=== PATIENT | female | born 1985 | race Caucasian/White ===

== ENCOUNTER 2022-08-16 04:02 | Emergency (ER) | payer MEDICARE, MEDICAID, SELFPAY ==
[2022-08-16 04:10] VITALS: BMI 36.0
[2022-08-16] MEDS: clonazePAM 1 MG TABLET PO ×2 (04:35→12:53)
[2022-08-16 05:00] VITALS: BP 132/83; PULSE 84; RESP 18; TEMP 36.8; O2SAT 100
--- NOTE | 2022-08-16 05:02 | MHC.EDTECH ---
pt continues to refuse lab draw. Did give nasal swab.
[2022-08-16 05:16] LABS: COVID-19 Test Negative (Negative); IDNOW Serial# BCCEAD1C
--- NOTE | 2022-08-16 06:40 | ED.PSYCH ---
HPI - Psych General Chief Complaint: Psychiatric Symptoms Stated Complaint: si Time Seen by Provider: 08/16/22 04:30 Source: patient Mode of arrival: EMS Limitations: no limitations History of Present Illness HPI Narrative: Patient with history of paranoid disorder/bipolar Section [address] by PD as she was driving erratically on the street without headlight on, paranoid about people following her going to kill her not taking her medications for a while. Related Data Home Medications Medication Instructions Recorded Confirmed albuterol sulfate 90 mcg/actuation 2 puff inhalation Q4H 08/16/22 08/16/22 aerosol inhaler clonazepam 1 mg tablet 1 tab PO BID 08/16/22 08/16/22 clonidine HCl 0.2 mg tablet 2 tab PO BEDTIME insomnia 08/16/22 08/16/22 cyanocobalamin (vitamin B-12) 1 tab PO DAILY 08/16/22 08/16/22 1,000 mcg tablet dextroamphetamine-amphetamine 12.5 1 tab PO BID 08/16/22 08/16/22 mg tablet melatonin 10 mg capsule 1 cap PO BEDTIME insomnia 08/16/22 08/16/22 melatonin 10 mg tablet,extended 1 tab PO BEDTIME insomnia 08/16/22 08/16/22 release,multiphase metformin 500 mg tablet 1 tab PO BID 08/16/22 08/16/22 topiramate 200 mg tablet 1 tab PO BEDTIME hyperlipidemia 08/16/22 08/16/22 trazodone 50 mg tablet 1.5 tab PO BEDTIME PRN insomnia 08/16/22 08/16/22 ziprasidone HCl 40 mg capsule 1 cap PO BEDTIME 08/16/22 08/16/22 Allergies Allergy/AdvReac Type Severity Reaction Status Date / Time No Known Allergies Allergy Verified 08/16/22 04:17 Review of Systems Review of Systems: Yes all other systems are reviewed and are negative PMFSH Social History Social History Advance Directives: No Physical Exam Vital Signs: Vital Signs: Last Vital Signs Temp 98.2 F 08/16/22 05:00 Pulse 84 08/16/22 05:00 Resp 18 08/16/22 05:00 BP 132/83 08/16/22 05:00 Pulse Ox 100 08/16/22 05:00 O2 Del Method 08/16/22 05:00 BMI result Body Mass Index 36.0 Appearance: Alert. Oriented X3. No acute distress. Anxious Eyes: PERRLA, No Nystagmus ENT: Pharynx normal. Oral Mucosa moist Neck: Normal inspection. Neck supple. CVS: Normal heart rate and rhythm. Pulses normal. Respiratory: No respiratory distress. Equal air entry bilateral, no wheezing/rales/rhonchi Abdomen: Soft and nontender. Bowel sounds are present, no mass palpable, no CVA tenderness Skin: Skin warm and dry. Normal skin color. Normal skin turgor. Extremities: No lower extremity edema. No calf tenderness Neuro: Oriented X 3. No motor deficit. No sensory deficit.No cerebellar signs , cranial nerves II-XII intact psych: Anxious making SI statements with plan to overdose Medications Administered Discontinued Medications Generic Name Dose Route Start Last Admin Trade Name Freq PRN Reason Stop Dose Admin Clonazepam 1 mg 08/16/22 04:30 08/16/22 04:35 Clonazepam 1 Mg Tablet PO 08/16/22 04:31 1 mg ONCE ONE Administration Medical Decision Making Medical Decision Making [facility] Narrative: Patient with delusional with paranoid thoughts and SI will get care team consult for evaluation Lab Data Labs: Lab Results 08/16/22 Range/Units 04:58 COVID-19 ([facility]) Negative (Negative) COVID-19 Clin Com See Note Discharge Plan Discharge Clinical Impression: Bipolar disorder, Chronic schizophrenia, Suicidal ideation Patient Disposition: Still a Patient Prescriptions: No Action metformin 500 mg tablet 1 tab PO BID trazodone 50 mg tablet 1.5 tab PO BEDTIME PRN (Reason: insomnia) dextroamphetamine-amphetamine 12.5 mg tablet 1 tab PO BID clonazepam 1 mg tablet 1 tab PO BID cyanocobalamin (vitamin B-12) 1,000 mcg tablet 1 tab PO DAILY clonidine HCl 0.2 mg tablet 2 tab PO BEDTIME topiramate 200 mg tablet 1 tab PO BEDTIME ziprasidone HCl 40 mg capsule 1 cap PO BEDTIME albuterol sulfate 90 mcg/actuation HFA aerosol inhaler 2 puff INHALATION Q4H melatonin 10 mg tablet,ext release multiphase 1 tab PO BEDTIME melatonin 10 mg capsule 1 cap PO BEDTIME Interventions: Woodward-Suicide Risk Severity Scale Last Done: 08/16/22 04:33
--- NOTE | 2022-08-16 06:43 | PC.NURSE ---
Patient sleeping since 529, observed restlessness at the time of arrival, Klonopin 1 mg administered at 0435 with + effect, patient refused to provide urine sample and refused blood work but agreed for COVID swab, med rec completed/pending provider's approval, care consult ordered/pending care team evaluation, behavior non concerning but unpredictable, VSS, will continue to monitor.
--- NOTE | 2022-08-16 09:17 | MHC.EDTECH ---
pt woke up this morning, emotional and agitated stating that she wanted to see a doctor. when asked to confirm that she would like to speak with a physician the pt refused. pt also refusing blood work and to provide a urine sample at this time.
[2022-08-16 10:24] LABS: Appearance Urine Turbid; Color Urine Yellow; Glucose Urine UA Negative (Negative); Leukocyte Esterase Urine Small (1+) (Negative); Nitrite Urine Negative (Negative); PH 6.5 (5.0-9.0); Specific Gravity - Urine 1.015 (1.005-1.025); UMIC TRIGGER UA YES; Urine Blood Negative (Negative); Urine Ketones Negative (Negative); Urine Protein Negative (Neg-Trace)
[2022-08-16 10:28] LABS: UPreg QC Valid YES; Urine Pregnancy NEGATIVE (NEGATIVE)
[2022-08-16 10:40] LABS: Bacteria Urine None Seen (None Seen); Granular Casts Urine Present; Hyaline Casts Urine 0-2 /LPF (0-2); RBC Urine 0-2 /HPF (0-2); WBC Urine 0-5 /HPF (0-5)
[2022-08-16 10:41] LABS: Amphetamine Screen Urine POSITIVE (Not Detect); Barbiturates, Urine Not Detected (Not Detect); Benzodiazepines Screen Urine POSITIVE (Not Detect); Cannabinoid Screen Urine POSITIVE (Not Detect); Cocaine Screen Urine Not Detected (Not Detect); Fentanyl, urine Not Detected (Not Detect); Opiate Screen Urine POSITIVE (Not Detect); Phencyclidine Screen Urine Not Detected (Not Detect)
--- NOTE | 2022-08-16 11:49 | PHA.MEDREC ---
Pharmacy Consult ? Medication Reconciliation Pharmacy has completed the medication reconciliation. Pharmacy has reviewed med rec done by [facility].
[2022-08-16] MEDS: Albuterol Sulfate 90 MCG 8 GM INHALER 2 PUFF INHALE (12:52)
[2022-08-16] MEDS: metFORMIN HCl 500 MG TABLET PO ×2 (12:53→20:25)
[2022-08-16] MEDS: Cyanocobalamin (Vitamin B-12) 1,000 MCG TABLET 1000 MCG PO (12:53)
--- NOTE | 2022-08-16 13:06 | HE.PHANOTE ---
Pharmacy has received Melatonin XR and Adderal 12.5 mg tablet from patient. Adderal counted 48 tablets, witness by JOSEP Yee. Pharmacy will hold medication and send each dose to ER until patient is either discharged or admitted. Shayy Law, HollandD
[2022-08-16 13:48] VITALS: BP 136/85; PULSE 85; RESP 16; TEMP 36.8; O2SAT 100
[2022-08-16] MEDS: LORazepam 1 MG TABLET PO (17:25)
[2022-08-16] MEDS: Nystatin Ointment 15 GM TUBE 1 APPL TOPICAL (17:28)
[2022-08-16] MEDS: Topiramate 100 MG TABLET 200 MG PO (19:38)
[2022-08-16] MEDS: traZODone HCL 25 MG HALFTAB 75 MG PO (19:38)
[2022-08-16] MEDS: cloNIDine HCL 0.2 MG TABLET 0.4 MG PO (19:39)
[2022-08-16 19:43] VITALS: BP 125/85; PULSE 83; RESP 18; TEMP 36.5; O2SAT 99
[2022-08-16 20:07] LABS: Alanine Aminotransferase 15 U/L (0-31); Albumin Level 4.4 g/dL (3.5-5.0); Alkaline Phosphatase 65 U/L (39-117); Anion Gap 17 (12-20); Aspartate Amino Transferase 16 U/L (5-31); Bilirubin Total 0.4 mg/dL (0.0-1.0); Blood Urea Nitrogen 13 mg/dL (9-16); Calcium 9.9 mg/dL (8.4-10.2); Carbon Dioxide 22 mmol/L (22-29); Chloride 107 mmol/L (96-108); Creatinine Clr Calc Pharmacy 93.8; Estimated Glomerular Filt Rate > 60; Ethanol < 10 mg/dL; Glucose Random 82 mg/dL (60-115); Potassium 3.8 mmol/L (3.3-5.1); Sodium 142 mmol/L (135-145); Total Protein 7.2 g/dL (6.5-8.0)
[2022-08-16] MEDS: Ziprasidone 40 MG CAPSULE PO (20:20)
--- NOTE | 2022-08-17 05:49 | PC.NURSE ---
Patient slept through the night, no distress observed/reported, medication compliant, behavior non concerning but unpredictable, patient was assessed by care team, pending disposition/adán follow up, VSS, will continue to monitor.
[2022-08-17] MEDS: Cyanocobalamin (Vitamin B-12) 1,000 MCG TABLET 1000 MCG PO (08:18)
[2022-08-17] MEDS: metFORMIN HCl 500 MG TABLET PO ×2 (08:18→20:10)
[2022-08-17] MEDS: Nystatin Ointment 15 GM TUBE 1 APPL TOPICAL (08:23)
[2022-08-17] MEDS: clonazePAM 1 MG TABLET PO ×3 (08:24→20:10)
[2022-08-17 12:20] VITALS: BP 114/71; PULSE 81; RESP 16; TEMP 36.5; O2SAT 100
[2022-08-17] MEDS: Albuterol Sulfate 90 MCG 8 GM INHALER 2 PUFF INHALE (13:36)
[2022-08-17] MEDS: Fluticasone Propionate Nasal 16 GM SPRAY 2 SPRAY NOSTRIL-B (13:36)
--- NOTE | 2022-08-17 13:39 | PC.NURSE ---
PT SEEN BY CARE TEAM. PT IS DISGRUNTLED ABOUT ABILITY TO PERFORM SELF CARE, APPEARS AGITATED THOUGH EASILY REASSURED. REQUESTING KLONOPIN AT THIS TIME, STATES SHE TAKES THIS AT HOME TWICE A DAY ONCE IN THE MORNING AND ONCE IN THE AFTERNOON. IT IS CURRENTLY NOT SCHEDULED UNTIL THIS EVENING, SHE IS REFUSING PRN ATIVAN I DON'T LIKE THE WAY THAT STUFF MAKES ME FEEL . WILL DISCUSS SWITCHING TIMES WITH PROVIDER. CALL RECEIVED FROM PTS MOTHER GEOVANY [phone]
--- NOTE | 2022-08-17 15:23 | PC.NURSE ---
PT CONSTIPATED, STATES CHRONIC SINCE JUNE. HEARD YELLING FROM THE BATHROOM. DISCOURAGED FROM ATTEMPTING TOO HARD. SEA SHELL GATHERER CONTACTED FOR ORDERS, PT REFUSING BISACODYL AT THIS TIME. STATES SHE WAS ABLE TO PASS SMALL BM. WILL HOLD ORDER FOR NOW. SPEECH PRESSURED, SKEPTICAL OF CARE.
--- NOTE | 2022-08-17 16:16 | PC.NURSE ---
PT REFUSING EKG AT THIS TIME, DEMANDING TO SPEAK WITH CARE TEAM ABOUT PLAN FOR ADMISSION.
--- NOTE | 2022-08-17 19:41 | PC.NURSE ---
PT CONTINUES TO REFUSE EKG
[2022-08-17 19:44] VITALS: BP 134/82; PULSE 84; RESP 16; O2SAT 96
[2022-08-17] MEDS: Ziprasidone 40 MG CAPSULE PO (20:10)
[2022-08-17] MEDS: cloNIDine HCL 0.2 MG TABLET 0.4 MG PO (20:10)
[2022-08-17] MEDS: Topiramate 100 MG TABLET 200 MG PO (20:10)
[2022-08-17] MEDS: Docusate Sodium 100 MG CAPSULE PO (20:10)
[2022-08-17] MEDS: traZODone HCL 25 MG HALFTAB 75 MG PO (20:18)
--- NOTE | 2022-08-17 23:55 | PC.NURSE ---
This nurse assume care at 23:00: Pt was re-assess, pt denies being SI/HI. Pt is refusing completing the EKG. Will continue to monitor. Please referral to the worklist for further info.
[2022-08-18 00:37] VITALS: BP 123/69; PULSE 66; RESP 22; TEMP 36.2; O2SAT 98
[2022-08-18] MEDS: Cyanocobalamin (Vitamin B-12) 1,000 MCG TABLET 1000 MCG PO (08:06)
[2022-08-18] MEDS: clonazePAM 1 MG TABLET PO (08:06)
[2022-08-18] MEDS: Docusate Sodium 100 MG CAPSULE PO (08:06)
[2022-08-18] MEDS: metFORMIN HCl 500 MG TABLET PO (08:06)
[2022-08-18 08:33] VITALS: BP 129/69; PULSE 70; RESP 20; TEMP 36.4; O2SAT 99
--- NOTE | 2022-08-18 09:00 | PC.NURSE ---
assumed care of this pt at 0700. pt pacing in room and hallway, stated I'm very agitated because my meds have been fked up since I got here. I have not gotten my Adderall, that's why I'm refusing the EKG . Liza FILLING HAND aware. pt refused Nystatin Ointment stated It's not the right ointment because it's yellow, it's supposed to be clear. It's making my rash worse . pt showered, sitting in common area at this time.
--- NOTE | 2022-08-18 09:23 | PC.NURSE ---
pt allowed staff to do ekg.
--- NOTE | 2022-08-18 11:26 | ECG_ITS ---
Test Reason : CHECK QT Blood Pressure : / mmHG Vent. Rate : 075 BPM Atrial Rate : 075 BPM P-R Int : 118 ms QRS Dur : 072 ms QT Int : 372 ms P-R-T Axes : -28 064 041 degrees QTc Int : 415 ms Normal sinus rhythm Normal ECG No previous ECGs available Referred By: Jorge Leung Electronically Signed By:GUILLERMINA DONALDSON
--- NOTE | 2022-08-18 12:44 | PM.PSYCN ---
History of Present Illness Date of Service: 08/18/2022 Chief Complaint: si Reason for Consult: psychosis Requesting physician: Lee Morton Discussed with referring provider: Yes Sources of Information: patient interviewed, chart reviewed and crisis/core team assessment reviewed HPI Narrative: Ms. Sharma is a 36 year-old woman with hx of alcohol use in remission, Bipolar Disorder who was sent via EMS after police stopped her as she was driving erratically and reporting paranoia of people following her. In the ED her utox was positive for cannabinoids, cannabis, amphetamines (she's prescribed adderall), opioids (which she denies using). In the ED, pt initially presented as disorganized, hyperverbal, tangential, reporting feeling as if someone was after her and feeling anxious. Pt seen today. Pt present as calm and cooperative. She reports she had been feeling more paranoid thinking there was something in her medications not making her feel right. She reports she left her BF house in a hurry, very anxious and worried about her life. She now denies visual or auditory hallucinations. She denies SI/HI. She reports her last admission to psychiatric unit was last December in 2021 for elpidio. We discussed that adderall was held as she was agitated and with delusions/psychosis. Pt showed understanding and asked appropriate questions about her care and effects of cannabis and amphetamines on Bipolar. Pt continues to denied using opioids. She reports relationship with BF is not well at this point as he has had concerns about her paranoia and she states she does not get along with his children. She reports at this point, BF has asked her not to return to his house and to take a break in terms of their relationship. Pt reports she called long time friend with whom she plans to stay until she figures something else. This adjusto writer operator called her friend, Memo, who reports he has known pt for several years. He states he last saw her last week and she seemed to be doing well. Memo reports that he is aware that she has been having problems with her BF and possibly the relationship is now over. He reports he spoke with her today and she appears in much improved condition and back to baseline. Today, pt adamantly denies suicidal or homicidal ideation. Pt receives OP treatment through [facility]. She sees Dr. Ammy Singleton. She reports she has been talking with her psychiatrist about decreasing dose of Adderal. Past Psychiatric History: Inpt: last 12/2021 OP: ALEJANDRA Singleton MD Past medication trials: geodone, topamax, adderall Medical Evaluation Reviewed: Yes Diagnostics Vital Signs (24Hr): Vital Signs - 24 hr 08/17/22 19:44 08/18/22 00:37 08/18/22 08:33 Temperature 97.2 F 97.6 F Pulse Rate 84 66 70 Respiratory Rate 16 22 H 20 Blood Pressure 134/82 123/69 129/69 Pulse Oximetry 96 98 99 Oxygen Delivery Method Room Air Room Air Room Air BMI result Body Mass Index 36.0 Labs 08/16/22 19:34 Labs: Laboratory Results - last 48 hr 08/16/22 19:34 Sodium 142 Potassium 3.8 Chloride 107 Carbon Dioxide 22 Anion Gap 17 BUN 13 Creatinine 0.91 Estim Creat Clear Calc 93.8 Estimated GFR > 60 Random Glucose 82 Calcium 9.9 Total Bilirubin 0.4 AST 16 ALT 15 Alkaline Phosphatase 65 Total Protein 7.2 Albumin 4.4 Ethyl Alcohol < 10 Mental Status Exam Mental Status Exam Narrative: Appearance: wearing hospital gown, in NAD Behavior: cooperative Psychomotor: no agitation or retardation noted Speech: clear, normal rate/rhythm/volume, spontaneous TP: linear TC: no signs of psychosis, future oriented. Mood: better Affect: congruent, non labile AH/VH: none Delusions: none Insight/judgment: fair x 2. improving x 2. Memory/cog: alert, oriented x 3. grossly intact to conversational testing. Medications Medications Current Medications Albuterol Sulfate (Albuterol Sulfate 90 Mcg 8 Gm Inhaler) 2 puff INHALE Q4H PRN PRN Reason: Shortness of Breath Last Admin: 08/17/22 13:36 Dose: 2 puff Clonazepam (Clonazepam 1 Mg Tablet) 1 mg PO BID ANDRÉS Last Admin: 08/18/22 08:06 Dose: 1 mg Clonidine HCl (Clonidine Hcl 0.2 Mg Tablet) 0.4 mg PO BEDTIME [facility] [place]; Protocol Last Admin: 08/17/22 20:10 Dose: 0.4 mg Cyanocobalamin (Cyanocobalamin (Vitamin B-12) 1,000 Mcg Tablet) 1,000 mcg PO DAILY ANDRÉS Last Admin: 08/18/22 08:06 Dose: 1,000 mcg Docusate Sodium (Docusate Sodium 100 Mg Capsule) 100 mg PO BID [facility] Last Admin: 08/18/22 08:06 Dose: 100 mg Fluticasone Propionate (Fluticasone Propionate Nasal 16 Gm [place]) 2 spray NOSTRIL-B DAILY PRN PRN Reason: allergy symptoms Last Admin: 08/17/22 13:36 Dose: 2 spray Metformin HCl (Metformin Hcl 500 Mg Tablet) 500 mg PO BID [facility] [place] Last Admin: 08/18/22 08:06 Dose: 500 mg Pt Own (Melatonin 10 Mg Tablet,Ext Release Multiphase) 1 tab PO BEDTIME ANDRÉS Last Admin: 08/17/22 20:21 Dose: Not Given Nystatin (Nystatin Ointment 15 Gm Tube) 1 appl TOPICAL BID [facility] [place]; Protocol Last Admin: 08/18/22 08:29 Dose: Not Given Topiramate (Topiramate 100 Mg Tablet) 200 mg PO BEDTIME ANDRÉS Last Admin: 08/17/22 20:10 Dose: 200 mg Trazodone HCl (Trazodone Hcl 25 Mg Halftab) 75 mg PO BEDTIME PRN PRN Reason: insomnia Last Admin: 08/17/22 20:18 Dose: 75 mg Ziprasidone (Ziprasidone 40 Mg Capsule) 40 mg PO BEDTIME ANDRÉS Last Admin: 08/17/22 20:10 Dose: 40 mg Allergies Allergies Allergy/AdvReac Type Severity Reaction Status Date / Time No Known Allergies Allergy Verified 08/16/22 04:17 Assessment & Plan Assessment & Plan (1) Bipolar disorder: Status: Acute Code(s): F31.9 - Bipolar disorder, unspecified Plan Ms. Sharma is a 36 year-old woman with hx of Bipolar Disorder who was brought via EMS after police stopped her driving erratically, presented paranoid thinking someone was after her trying to hurt her. She was disorganized and tangential. In the ED utox positive for cannabinoids, amphetamines, opioids and benzodiazepines. She is prescribed adderall and benzodiazepines. She declines using opioiod. In the ED- pt was restarted on geodone. Adderall was held as it was thought to increase or worsen psychosis. Pt presenting as much more clear and linear with no signs of psychosis or delusions. It is possible that cannabis and amphetamines worse psychosis given her underlying Bipolar Disorder. Pt understands this information and agrees to hold off adderall until seen by her long time psychiatrist Dr. Blanche Singleton. No imminent safety concerns in terms of suicidal or homicidal ideation nor she is gravely disable due to psychosis or delusions to keep her against her will at this point. PLAN 1. d/c home with follow up OP psychiatrist Dr. Ammy Singleton. 2. Pt to hold amphetamines and avoid cannabinoids as it will trigger psychosis/paranoid Total time managing care of this patient today ____ minutes.
--- NOTE | 2022-08-18 16:27 | MHC.CARE ---
Patient cleared for discharge by psychiatric provider, no longer in an acute state and does not require a psychiatric admission. ED provider, Dr. Morton updated and in agreement with plan of care. Patient will call a friend for a ride
== END 2022-08-18 17:05 | disposition home or self-care (01) ==
PROVIDERS: Emergency Provider Internal Medicine
DX: F31.9 Bipolar disorder, unspecified (principal); F20.9 Schizophrenia, unspecified; R45.851 Suicidal ideations; F41.9 Anxiety disorder, unspecified; Z20.822 Contact with and (suspected) exposure to COVID-19; Z79.899 Other long term (current) drug therapy
CPT/HCPCS: 36415; 80053; 80307; 81001; 81025; 82077; 87635; 93005; 99285; S9485